=== PATIENT | male | born 1950 | race Caucasian/White ===

== ENCOUNTER 2019-06-09 15:25 | Outpatient (CLI) | payer MEDICARE, OTHER, SELFPAY ==
--- NOTE | 2019-06-09 15:39 | XR_ITS ---
WS: [id number] Lumbar spine, 3 views, 06/09/2019 Clinical Data: CHRONIC LOW BACK PAIN Comparison: None. Findings: No compression fractures or subluxation is seen. Degenerative disc narrowing at L5-S1 is seen.. The t ransverse processes and SI joints are normal. Minimal osteoarthritic spurring is seen of all the lumb ar vertebral bodies. There is a levoscoliosis. XR/XR lumbar spine 2-3V* [id number] Impression: Mild osteoarthritis and degenerative disc disease at L5-S1.
== END 2019-06-09 15:26 | disposition home or self-care (01) ==
LOC: RAD 15:34
PROVIDERS: Family Provider Family Medicine; PCP Family Medicine; Visit Provider Family Medicine
DX: M19.90 Unspecified osteoarthritis, unspecified site (principal); M51.37 Other intervertebral disc degeneration, lumbosacral region; G89.29 Other chronic pain; Z13.6 Encounter for screening for cardiovascular disorders; R35.1 Nocturia; R53.82 Chronic fatigue, unspecified; G47.33 Obstructive sleep apnea (adult) (pediatric); M54.42 Lumbago with sciatica, left side
CPT/HCPCS: 72100; 80053; 80061; 84153; 84439; 84443; 85025

== ENCOUNTER 2019-06-16 13:41 | Outpatient (CLI) | payer MEDICARE, OTHER, SELFPAY ==
--- NOTE | 2019-06-16 13:49 | MR_ITS ---
WS: [id number] MRI of the lumbar spine, 06/16/2019 Clinical Data: CHRONIC LOW BACK PAIN Comparison: None. Findings: No compression fractures are seen. The lower spinal cord ends posterior to the L1 vertebral body. The re is disc space narrowing at L5-S1 with degenerative disc disease noted at all levels. The bone ashwini ow the vertebral bodies demonstrates a normal signal. L1-L2: No canal stenosis, disc bulge or foraminal narrowing is seen. L2-L3: No canal stenosis, disc bulge or foraminal narrowing is seen. L3-L4: There is a minimal central disc bulge along with facet joint hypertrophy causing mild canal st enosis and mild foraminal stenosis. L4-L5: There is a mild central disc bulge with facet joint hypertrophy causing minimal canal and fora evans stenosis. L5-S1: No canal stenosis, disc bulge or foraminal narrowing is seen. MR/MR lumbar spine wo con* [id number] Impression: 1. Canal and foraminal stenosis which is minimal at L3-L4 and L4-L5. 2. Degenerative disc disease with narrowing at L5-S1. 3. Degenerative disc disease noted at all levels.
== END 2019-06-16 13:42 | disposition home or self-care (01) ==
LOC: RADWPI 13:48
PROVIDERS: Family Provider Family Medicine; PCP Family Medicine; Visit Provider Family Medicine
DX: M48.061 Spinal stenosis, lumbar region without neurogenic claudication (principal); M51.37 Other intervertebral disc degeneration, lumbosacral region; G89.29 Other chronic pain
CPT/HCPCS: 72148

== ENCOUNTER 2019-07-31 19:28 | Emergency (ER) | payer MEDICARE, OTHER, SELFPAY ==
[2019-07-31 19:35] VITALS: BP 131/71; PULSE 76; RESP 16; TEMP 37.1; O2SAT 98; BMI 23.2
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
--- NOTE | 2019-07-31 19:39 | XRR_ITS ---
PROCEDURE INFORMATION: Exam: XR Right Hand Exam date and time: 07/31/2019 7:41 PM Age: 69 years old Clinical indication: Injury or trauma; Initial encounter; Blunt trauma (contusions or hematomas; Hand; Right; Injury date: 07/31/2019 TECHNIQUE: Imaging protocol: XR Right hand. Views: 3 or more views. COMPARISON: No relevant prior studies available. FINDINGS: Bones/joints: The bones are intact and in normal alignment. No foreign body visualized. Soft tissues: Soft tissue laceration in the volar index finger. XR/XR hand RT min 3V* [id number] IMPRESSION: No acute skeletal abnormality.
[2019-07-31 19:40] VITALS: BP 124/76; PULSE 72; RESP 16; O2SAT 98
[2019-07-31] MEDS: tetanus-dipt-pertussis 0.5 mL SDV IM (19:56)
--- NOTE | 2019-07-31 20:52 | ED_ITS ---
Entered by Emelina Hassan, acting as scribe for Magda Tejeda MD Jul 31, 2019 19:28 HPI - Extremity Problem General: Chief complaint: Extremity Injury, Upper Stated complaint: right hand lac Time Seen by Provider: 07/31/19 19:36 PFS ED PFSH: Medical History Chronic low back pain GHAZAL (obstructive sleep apnea) Surgical History H/O thyroidectomy History of appendectomy Family History Father Cancer Social History Smoking and tobacco status: never smoked Alcohol intake: current Alcohol intake frequency: holidays/special occasions only Alcohol type: wine Course Vital Signs: Vital signs: Vital Signs Temperature 98.8 F 07/31/19 19:35 Pulse Rate 76 07/31/19 19:35 Respiratory Rate 16 07/31/19 19:35 Blood Pressure 131/71 07/31/19 19:35 Pulse Oximetry 98 07/31/19 19:35 MDM - Extremity (Nontraumatic) Imaging Data^: Other Xray: Radiologist's impression: [place] [address] XRay Report Signed Patient: Kosta Johnson #: [id number] : 3Acct#:[id number] Age/Sex: 69 / MADM Date: 07/31/19 Loc: ERRoom/Bed: Attending Dr: Ordering Provider/Ordering MD: Magda Tejeda MD Date of Service: 07/31/19 Procedure(s): XR hand RT min 3V* [id number] Accession Number(s): [id number] Report Number: [id number] PROCEDURE INFORMATION: Exam: XR Right Hand Exam date and time: 07/31/2019 7:41 PM Age: 69 years old Clinical indication: Injury or trauma; Initial encounter; Blunt trauma (contusions or hematomas; Hand; Right; Injury date: 07/31/2019 TECHNIQUE: Imaging protocol: XR Right hand. Views: 3 or more views. COMPARISON: No relevant prior studies available. FINDINGS: Bones/joints: The bones are intact and in normal alignment. No foreign body visualized. Soft tissues: Soft tissue laceration in the volar index finger. XR/XR hand RT min 3V* [id number] IMPRESSION: No acute skeletal abnormality. Dictated By:Jorge Tavares Signed By:Jorge TavaresSiviviane Date/Time:07/31/192009 Discharge Plan Discharge Patient Disposition: Home, Self-Care Clinical Impression: Finger laceration Qualifiers: Encounter type: initial encounter Finger: index finger Damage to nail status: without damage Foreign body presence: without foreign body Laterality: right Qualified Code(s): S61.210A - Laceration without foreign body of right index finger without damage to nail, initial encounter Condition: Stable Prescriptions: [place] 5-325 mg tablet 1 tab PO Q6H PRN (Reason: pain) Qty: 8 RF: 0 EC-Naprosyn 500 mg tablet,delayed release (DR/EC) 500 mg PO BID PRN (Reason: pain) Qty: 20 RF: 0 Discharge Orders: Discharge Order (Routine); Ordered 07/31/19 Ordered By: Magda Tejeda Referrals: Rubens Tesfaye DO [Family Provider] - Janneth Dixon DO [Primary Care Provider] - Discharge Diet: Advance as tolerated Discharge Activity: Resume usual activity Patient Instructions: Finger Laceration (ED) Activity Restrictions/Additional Instructions: return in 7 days for suture removal Coding Level of Care Code ED Project Director for Angel Kumar
[2019-07-31 20:57] VITALS: BP 124/76; PULSE 16; RESP 76; O2SAT 98
== END 2019-07-31 20:59 | disposition home or self-care (01) ==
PROVIDERS: Emergency Provider Emergency Medicine; Family Provider Family Medicine; PCP Family Medicine
DX: S61.210A Laceration without foreign body of right index finger without damage to nail, initial encounter (principal); X58.XXXA Exposure to other specified factors, initial encounter
CPT/HCPCS: 12001; 12345; 73130; 90471; 90715; 99281; 99283

== ENCOUNTER → 2021-06-09 15:20 | Outpatient (BNVA) | payer MEDICARE, OTHER, SELFPAY | PROVIDERS: Family Provider Family Medicine; PCP Family Medicine; Visit Provider Nurse Practitioner Family | DX: Z20.822 Contact with and (suspected) exposure to COVID-19 (principal) | CPT/HCPCS: 87635 ==

== ENCOUNTER → 2022-06-01 08:35 | Outpatient (BNVA) | payer MEDICARE, SELFPAY | PROVIDERS: Family Provider Family Medicine; PCP Family Medicine; Visit Provider Specialist | DX: S05.00XA Injury of conjunctiva and corneal abrasion without foreign body, unspecified eye, initial encounter (principal); X58.XXXA Exposure to other specified factors, initial encounter | CPT/HCPCS: 99202 ==

== ENCOUNTER → 2022-09-21 15:06 | Outpatient (BNVA) | payer MEDICARE, SELFPAY | PROVIDERS: Family Provider Family Medicine; PCP Family Medicine; Visit Provider Family Medicine | DX: R53.82 Chronic fatigue, unspecified (principal); Z12.5 Encounter for screening for malignant neoplasm of prostate; G47.33 Obstructive sleep apnea (adult) (pediatric); Z76.89 Persons encountering health services in other specified circumstances; Z13.6 Encounter for screening for cardiovascular disorders | CPT/HCPCS: 80053; 80061; 84439; 84443; 85025; G0103 ==

== ENCOUNTER → 2022-10-21 14:38 | Outpatient (BNVA) | payer MEDICARE, SELFPAY | PROVIDERS: Family Provider Family Medicine; PCP Family Medicine; Visit Provider Surgery | DX: Z12.11 Encounter for screening for malignant neoplasm of colon (principal); Z86.010 Personal history of colon polyps | CPT/HCPCS: 99024; 99203 ==

== ENCOUNTER 2022-11-19 07:09 | Day surgery (SDC) | payer MEDICARE, SELFPAY ==
[2022-11-17 09:58] VITALS: BMI 23.2
[2022-11-19 07:26] VITALS: BP 108/69; PULSE 85; RESP 20; TEMP 36.4; O2SAT 97
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
[2022-11-19] MEDS: sodium chloride 0.9% 1,000 ML 30 ML IV (07:42)
--- NOTE | 2022-11-19 08:09 | W.PM.OPSUD ---
Surgery/Procedure H&P Update DATE OF PROCEDURE: November 19, 2022 DATE H&P PERFORMED: 10/21/22 H&P UPDATE INFORMATION: I have reviewed H&P completed within last 30 days, I have examined patient prior to procedure and No changes to prior documentation PREOP DIAGNOSIS: screening PLANNED PROCEDURE: Operation Date: 11/19/22 08:00 Proposed Procedures p Colonoscopy 53592(Not Applicable) - Luis Manuel Apple, DO
[2022-11-19 08:48] VITALS: BP 89/57; PULSE 63; RESP 16; TEMP 36.1; O2SAT 97
--- NOTE | 2022-11-19 09:00 | ANE.PACU2 ---
Inpatient post-anesthesia follow up: Airway intact: Yes Vital signs: Temperature 97.0 F Pulse Rate 60 Respiratory Rate 16 Blood Pressure 98/63 Pulse Oximetry 99 Oxygen Delivery Me thod Room Air Oxygen Flow Rate Fraction of Inspir ed Oxygen Hydration adequate: Yes Nausea and vomiting: Yes Pain level: 1 Mental status: Baseline
[2022-11-19 09:05] VITALS: BP 98/63; PULSE 60; RESP 16; O2SAT 99
== END 2022-11-19 09:25 | disposition home or self-care (01) ==
PROVIDERS: PCP Family Medicine; Visit Provider Surgery
PROC: 0DJD8ZZ Inspection of Lower Intestinal Tract, Via Natural or Artificial Opening Endoscopic (ICD-10-PCS; CPT 45378; principal; 2022-11-19 08:00)
DX: Z12.11 Encounter for screening for malignant neoplasm of colon (principal); D12.3 Benign neoplasm of transverse colon
CPT/HCPCS: 45385; 88305; J2704; J7030

== ENCOUNTER → 2022-12-02 15:48 | Outpatient (BNVA) | payer MEDICARE, SELFPAY | PROVIDERS: PCP Family Medicine; Visit Provider Surgery | DX: Z09 Encounter for follow-up examination after completed treatment for conditions other than malignant neoplasm (principal) | CPT/HCPCS: 99212 ==

== ENCOUNTER 2023-08-22 13:33 | Emergency (ER) | payer MEDICARE, SELFPAY ==
--- NOTE | 2023-08-22 13:47 | XRR_ITS ---
PROCEDURE INFORMATION: Exam: XR Chest Exam date and time: 08/22/2023 2:43 PM Age: 73 years old Clinical indication: Cough and dyspnea; Patient HX: Dyspnea; Cough; Fever; Weakness; No previous cardiac HX; Additional info: Dyspnea/cough TECHNIQUE: Imaging protocol: Radiologic exam of the chest. Views: 1 view. COMPARISON: No relevant prior studies available. FINDINGS: Lungs: There is no consolidation. Pleural spaces: There is no pleural effusion or pneumothorax. Heart/Mediastinum: Cardiomediastinal contours are unremarkable. Bones/joints: Bones are unremarkable. XR/XR chest 1V portable [id number] IMPRESSION: No acute findings.
[2023-08-22 14:04] VITALS: BP 134/77; PULSE 104; RESP 17; TEMP 37.5; O2SAT 99; BMI 23.2
[2023-08-22 14:29] LABS: Basophils # 0.1 10^3/uL (0.0-0.1); Basophils % 0.6 %; Eosinophils % 0.5 %; Hematocrit 48.3 % (37-53); Lymphocytes # 0.8 10^3/uL (0.8-4.8); Lymphocytes % 9.5 %; Mean Corpuscular HGB Conc 32.3 g/dL (30-55); Mean Corpuscular Hemoglobin 30.9 pg (27-33); Mean Corpuscular Volume 95.6 fl (82-101); Mean Platelet Volume 11.6 fL (7.4-10.4); Monocytes # 1.2 10^3/uL (0.2-0.9); Monocytes % 13.7 %; Neutrophils # 6.34 10^3/uL (1.8-7.7); Neutrophils % 75.3 %; Nucleated Red Blood Cells % 0 %; Platelet Count 139 10^3/cmm (157-399); Red Blood Count 5.05 10^6/uL (3.85-5.65); Red Cell Distribution Width 12.8 % (12.1-15.1); White Blood Count 8.41 10^3/uL (3.29-11.43)
[2023-08-22 14:46] LABS: Lactic Sepsis W/Reflex 1.3 mmol/L (0.5-2.2)
[2023-08-22 14:47] LABS: Alanine Aminotransferase 14 U/L (0-41); Albumin Level 3.7 g/dL (3.5-5.2); Alkaline Phosphatase 73 U/L (40-130); Anion Gap 13.8 (5-19); Aspartate Amino Transferase 19 U/L (0-40); Blood Urea Nitrogen 25 mg/dL (8-23); Calcium 8.8 mg/dL (8.5-10.5); Carbon Dioxide 25 mmol/L (22-29); Chloride 99 mmol/L (98-107); Creatine Phosphokinase 100 U/L (39-308); Globulin 3.3 g/dL (1.3-4.6); Glucose 133 mg/dL (65-115); Magnesium 2.1 mg/dL (1.7-2.3); Osmolality Calculated 284 mOsm/kg (285-295); Potassium 3.8 mmol/L (3.5-5.1); Sodium 134 mmol/L (136-145); Total Bilirubin 0.5 mg/dL (0.15-1.2)
[2023-08-22 14:54] LABS: Creatinine Clr Calc Pharmacy 53.9562
--- NOTE | 2023-08-22 14:56 | W.ED.FEVER ---
HPI - Fever General: Chief Complaint: Fever Stated Complaint: fever, weakness Time Seen by Provider: 08/22/23 13:47 Source: patient Mode of arrival: ambulatory History of Present Illness: 73-year-old male presents to the emergency room from home with complaint of fever abdominal discomfort nausea single episode of pretty severe diarrhea this afternoon he had a tick bite to his left inguinal region couple days ago initially did not bother him now become red and inflamed with some central almost necrotic like appearance of localized lymph node swelling. He had a fever just generally felt very weak no systemic rash. No chest pain or shortness of breath MD elicited complaint: fever Associated symptoms: Reports chills, diarrhea, headache(s), myalgias and stiffness; Deny no associated symptoms, abdominal pain, flank pain, chest pain, confusion, cough, dysuria, extremity pain, nasal congestion, nausea, night sweats, rash, rhinorrhea, short of breath, sinus pain, sore throat, vomiting, weight loss or other Treatments prior to arrival fever: none Review of Systems Const: Reports: chills; Denies: fever(s) or night sweats ENMT: Denies: nasal congestion or sinus pain Card: Denies: chest pain Resp: Denies: dyspnea GI: Reports: diarrhea; Denies: abdominal pain, nausea or vomiting : Denies: flank pain, dysuria, urinary frequency or urinary urgency Musc: Denies: neck pain, back pain or extremity pain Skin/Breast: Denies: rash Neuro: Reports: headache(s); Denies: confusion PFSH ED PFSH: Medical History (Updated 08/22/23 @ 17:01 by Rubens Tesfaye DO) Chronic low back pain GHAZAL (obstructive sleep apnea) Surgical History History of appendectomy H/O thyroidectomy Family History Father Cancer Social History Smoking and tobacco/nicotine status: never used tobacco/nicotine Second hand smoke exposure: No Alcohol intake: current Alcohol intake frequency: holidays/special occasions only Alcohol type: wine Substance/Drug Use: never Caregiver/support person: No Lives independently: Yes Do you think of yourself as: Straight/Heterosexual Current gender identity: Male Physical Exam Const: GENERAL APPEARANCE: cooperative and comfortable ORIENTATION/CONSCIOUSNESS: Yes awake, Yes oriented to person, Yes oriented to place and Yes oriented to time HENMT: COMMON NORMALS: normocephalic, atraumatic and hearing grossly normal bilaterally HEAD & SCALP: normocephalic and atraumatic Resp: COMMON NORMALS: normal respiratory effort, No retractions, No use of accessory muscles and clear to auscultation bilaterally AUSCULTATION: clear to auscultation bilaterally Cardio: COMMON NORMALS: regular rate, regular rhythm and No murmurs present (Cardio) RATE: regular rate RHYTHM: regular rhythm GI: COMMON NORMALS: Soft to palpation and No hepatosplenomegaly present AUSCULTATION: Yes normoactive bowel sounds PALPATION: Yes Soft to palpation, No Tenderness to palpation present (GI), No Guarding due to palpation present (GI) and Yes No hepatosplenomegaly present Extremity: COMMON NORMALS: normal to inspection, capillary refill normal, no clubbing, cyanosis or edema, no calf tenderness and no pedal edema Neuro: SENSORIUM/ORIENTATION: Yes oriented to person, Yes oriented to place and Yes oriented to time Skin: OTHER: No systemic rash. Localized rash with erythema central necrosis of a tick bite in the left inguinal region Course Vital Signs: Vital signs: Vital Signs Temperature 99.5 F 08/22/23 14:04 Pulse Rate 104 H 08/22/23 14:04 Respiratory Rate 17 08/22/23 14:04 Blood Pressure 134/77 08/22/23 14:04 Pulse Oximetry 99 08/22/23 14:04 Oxygen Delivery Me thod Room Air 08/22/23 14:04 MDM - Fever Medical Decision Making No leukocytosis liver functions normal patient does have a rash from the tick bite suspect he likely has a tickborne illness we will start him on doxycycline.. Tick panel is pending. Follow-up with primary care doctor symptoms worsen return. Medical Records I reviewed the patient's medical records. Lab Data I reviewed the patient's lab results. 08/22/23 14:17 08/22/23 14:17 Radiology Impressions Chest X-Ray 08/22/23 13:47 IMPRESSION: No acute findings. Laboratory Results WBC 8.41 10^3/uL (3.29-11.43) 08/22/23 14:17 RBC 5.05 10^6/uL (3.85-5.65) 08/22/23 14:17 Hgb 15.60 g/dL (11.27-16.99) 08/22/23 14:17 Hct 48.3 % (37-53) 08/22/23 14:17 MCV 95.6 fl (82-101) 08/22/23 14:17 MCH 30.9 pg (27-33) 08/22/23 14:17 MCHC 32.3 g/dL (30-55) 08/22/23 14:17 RDW 12.8 % (12.1-15.1) 08/22/23 14:17 Plt Count 139 10^3/cmm (157-399) L 08/22/23 14:17 MPV 11.6 fL (7.4-10.4) H 08/22/23 14:17 Neut % (Auto) 75.3 % 08/22/23 14:17 Lymph % (Auto) 9.5 % 08/22/23 14:17 [place] % (Auto) 13.7 % 08/22/23 14:17 Eos % (Auto) 0.5 % 08/22/23 14:17 Baso % (Auto) 0.6 % 08/22/23 14:17 Neut # (Auto) 6.34 10^3/uL (1.8-7.7) 08/22/23 14:17 Lymph # (Auto) 0.8 10^3/uL (0.8-4.8) 08/22/23 14:17 [place] # (Auto) 1.2 10^3/uL (0.2-0.9) H 08/22/23 14:17 Eos # (Auto) 0.0 10^3/uL (0.0-0.8) 08/22/23 14:17 Baso # (Auto) 0.1 10^3/uL (0.0-0.1) 08/22/23 14:17 Nucleated RBC % (auto) 0 % 08/22/23 14:17 Nucleated RBCs # 0.0 /100WBC 08/22/23 14:17 Sodium 134 mmol/L (136-145) L 08/22/23 14:17 Potassium 3.8 mmol/L (3.5-5.1) 08/22/23 14:17 Chloride 99 mmol/L (98-107) 08/22/23 14:17 Carbon Dioxide 25 mmol/L (22-29) 08/22/23 14:17 Anion Gap 13.8 (5-19) 08/22/23 14:17 BUN 25 mg/dL (8-23) H 08/22/23 14:17 Creatinine 1.3 mg/dL (0.7-1.2) H 08/22/23 14:17 GFR Calculation Not Reportable 08/22/23 14:17 Glucose 133 mg/dL (65-115) H 08/22/23 14:17 Calculated Osmolality 284 mOsm/kg (285-295) L 08/22/23 14:17 Lactic Acid 1.3 mmol/L (0.5-2.2) 08/22/23 14:17 Calcium 8.8 mg/dL (8.5-10.5) 08/22/23 14:17 Magnesium 2.1 mg/dL (1.7-2.3) 08/22/23 14:17 Total Bilirubin 0.5 mg/dL (0.15-1.2) 08/22/23 14:17 AST 19 U/L (0-40) 08/22/23 14:17 ALT 14 U/L (0-41) 08/22/23 14:17 Alkaline Phosphatase 73 U/L (40-130) 08/22/23 14:17 Creatine Kinase 100 U/L (39-308) 08/22/23 14:17 Total Protein 7.0 g/dL (6.6-8.7) 08/22/23 14:17 Albumin 3.7 g/dL (3.5-5.2) 08/22/23 14:17 Globulin 3.3 g/dL (1.3-4.6) 08/22/23 14:17 Urine Color Yellow (Yellow) 08/22/23 16:14 Urine Appearance Clear (CLEAR) 08/22/23 16:14 Urine pH 5 (5-7) 08/22/23 16:14 Ur Specific [place] 1.020 (1.005-1.030) 08/22/23 16:14 Urine Protein Neg (Negative) 08/22/23 16:14 Urine Glucose (UA) Norm (Normal) 08/22/23 16:14 Urine Ketones 1+ (Negative) H 08/22/23 16:14 Urine Blood 2+ (Negative) H 08/22/23 16:14 Urine Nitrate Negative (Negative) 08/22/23 16:14 Urine Bilirubin Neg (Negative) 08/22/23 16:14 Urine Urobilinogen Norm mg/dL (Negative) 08/22/23 16:14 Ur Leukocyte Esterase Negative (Negative) 08/22/23 16:14 Urine RBC 0-4 /hpf (0-2) H 08/22/23 16:14 Urine WBC Rare /hpf (0-5) 08/22/23 16:14 Ur Squamous Epith Cells Rare /hpf (0-5) 08/22/23 16:14 Amorphous Sediment Not Reportable 08/22/23 16:14 Urine Bacteria Trace /hpf (NONE) 08/22/23 16:14 Urine Mucus 1+ /hpf 08/22/23 16:14 Coronavirus 229E (PCR) Not detected (NOT DETECT) 08/22/23 15:08 Influenza Type A Ag negative (Negative) 08/22/23 15:08 Influenza Type B Ag negative (Negative) 08/22/23 15:08 SARS-CoV-2 (PCR) Not detected (NOT DETECT) 08/22/23 15:08 All radiology interpretation(s) finalized by discharge Discharge Plan Discharge Patient Disposition: Home Clinical Impression: Tick-borne disease Condition: Stable Prescriptions: New doxycycline hyclate 100 mg capsule 100 mg PO BID 21 Days Qty: 42 0RF No Action multivitamin Tablet 1 tab PO DAILY zinc acetate 50 mg (zinc) Capsule 50 mg PO DAILY PRN (Reason: unknown) Calcium 500 500 mg calcium (1,250 mg) Tablet 500 mg PO DAILY PRN (Reason: unknown) potassium gluconate 595 mg (99 mg) Tablet 595 mg PO DAILY PRN (Reason: unknown) vitamin D3-vitamin K2 1,250-200 mcg Capsule 1 cap PO DAILY PRN (Reason: unknown) Discharge Orders: Discharge ED (Routine); Ordered 08/22/23 Ordered By: Rubens Tesfaye Referrals: Rg Gautam, DO [Primary Care Provider] - Discharge Diet: Usual diet Patient Instructions: Opioid Safety, Pain Management Activity Restrictions/Additional Instructions: Thank you for choosing [facility] for your healthcare needs today. Please realize this is an emergency room and that we are providing you with a medical screening exam and this may not be complete and all inclusive of all the testing and or work up that you may need to determine your ailment or severity of your illness. It is very important that you follow up as instructed or that you return to the Emergency Department should you have concerns or if your condition changes or worsens in any way. You are seen today with complaints of not feeling well the last several days after began after tick bite with a rash at the site of the tick bite. Liver enzymes white count were normal suspect of a tickborne illness recommend he Coding Level of Care Code ED Instrumentation Supervisor for Angel Kumar
[2023-08-22 15:05] VITALS: BP 112/68; PULSE 79; O2SAT 97
[2023-08-22] MEDS: sodium chloride 0.9% 1,000 ML 999 ML IV (15:05)
--- NOTE | 2023-08-22 15:11 | PC.PHAR ---
pt states he takes no prescription medications-pt states no longer takes levothyroxine 25mcg daily last filled 05/04/23 30d/s pt states not taken for a month or so-pt states takes his multivitamin daily and takes the zinc,kcl otc,calcium and vit d and vit k prn when he thinks about it
[2023-08-22 15:33] LABS: Influenza A by IFA negative (Negative); Influenza B by IFA negative (Negative)
[2023-08-22 15:35] VITALS: BP 122/68; PULSE 75; O2SAT 99
[2023-08-22 16:30] VITALS: BP 125/76; PULSE 78; O2SAT 98
[2023-08-22 16:55] LABS: Urine Appearance Clear (CLEAR); Urine Color Yellow (Yellow); pH Urine 5 (5-7)
[2023-08-22 16:57] LABS: Add Urine Microscopic? YES; Bacteria Urine TRACE /hpf; Bilirubin Urine Neg (Negative); Blood Urine 2+ (Negative); Glucose Urine UA Norm (Normal); Ketones Urine 1+ (Negative); Leukocyte Esterase Urine Negative (Negative); Mucus Urine 1+ /hpf; Nitrate Urine Negative (Negative); Protein Urine Neg (Negative); RBC Urine 0-4 /hpf (0-2); Squamous Epithelial Cell Urine RARE /hpf (0-5); Urobilinogen Urine Norm (Negative); WBC Urine RARE /hpf (0-5)
[2023-08-22 16:58] LABS: Add Urine Culture? No
[2023-08-22 17:02] LABS: Adenovirus Not Detected (NOT DETECT); Chlamydia Pneumoniae Not Detected (NOT DETECT); Coronavirus 229E,HKU1,NL63,OC4 Not Detected (NOT DETECT); Human Metapneumovirus Not Detected (NOT DETECT); Human Rhinovirus/Enterovirus Not Detected (NOT DETECT); Influenza A Not Detected (NOT DETECT); Influenza A H1 Not Detected (NOT DETECT); Influenza A H1-2009 Not Detected (NOT DETECT); Influenza A H3 Not Detected (NOT DETECT); Influenza B Not Detected (NOT DETECT); Mycoplasma Pneumoniae Not Detected (NOT DETECT); Parainfluenza Virus Type 1 Not Detected (NOT DETECT); Parainfluenza Virus Type 2 Not Detected (NOT DETECT); Parainfluenza Virus Type 3 Not Detected (NOT DETECT); Parainfluenza Virus Type 4 Not Detected (NOT DETECT); Respiratory Syncytial Virus A Not Detected (NOT DETECT); Respiratory Syncytial Virus B Not Detected (NOT DETECT); SARS-COV-2 Not Detected (NOT DETECT)
[2023-08-22 17:38] VITALS: BP 125/73; PULSE 81; O2SAT 98
[2023-08-23 15:48] LABS: Lyme AB Screen <0.90 index
[2023-08-27 17:30] LABS: E. Chaffeensis AB IGG <1:64; E. Chaffeensis AB IGM <1:20
[2023-08-27 19:11] LABS: RMSF IGG NOT DETECTED; RMSF IGM NOT DETECTED
== END 2023-08-22 17:46 | disposition home or self-care (01) ==
PROVIDERS: Emergency Provider Family Medicine; PCP Family Medicine
DX: A93.8 Other specified arthropod-borne viral fevers (principal); Z11.52 Encounter for screening for COVID-19
CPT/HCPCS: 71045; 80053; 81001; 82550; 83605; 83735; 85025; 86618; 86666; 86757; 87040; 87635; 87804; 96360; 99284; J7030

== ENCOUNTER → 2023-12-07 13:24 | Outpatient (BNVA) | payer MEDICARE, SELFPAY | PROVIDERS: PCP Family Medicine; Visit Provider Family Medicine | DX: L44.9 Papulosquamous disorder, unspecified (principal) | CPT/HCPCS: 88305 ==

== ENCOUNTER 2023-12-21 17:48 | Emergency (ER) | payer MEDICARE, SELFPAY ==
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
[2023-12-21 17:57] VITALS: BP 120/75; PULSE 69; RESP 18; TEMP 36.4; O2SAT 100
[2023-12-21] MEDS: iohexol 350 mg/mL 500 mL Btl (per mL) IV (18:23)
[2023-12-21 18:30] VITALS: BP 141/78; PULSE 74; O2SAT 97
[2023-12-21 19:37] LABS: Alanine Aminotransferase 17 U/L (0-41); Alkaline Phosphatase 88 U/L (40-130); Anion Gap 14.1 (5-19); Aspartate Amino Transferase 19 U/L (0-40); Blood Urea Nitrogen 18 mg/dL (8-23); Calcium 8.7 mg/dL (8.5-10.5); Carbon Dioxide 26 mmol/L (22-29); Chloride 100 mmol/L (98-107); Globulin 2.4 g/dL (1.3-4.6); Glucose 106 mg/dL (65-115); Osmolality Calculated 284 mOsm/kg (285-295); Potassium 4.1 mmol/L (3.5-5.1); Sodium 136 mmol/L (136-145); Total Bilirubin 0.5 mg/dL (0.15-1.2); Total Protein 6.4 g/dL (6.6-8.7)
[2023-12-21 19:38] VITALS: BP 110/67; PULSE 77; O2SAT 99
== END 2023-12-21 19:39 | disposition home or self-care (01) ==
PROVIDERS: Emergency Provider Emergency Medicine; PCP Family Medicine
DX: S51.012A Laceration without foreign body of left elbow, initial encounter (principal); V89.2XXA Person injured in unspecified motor-vehicle accident, traffic, initial encounter
CPT/HCPCS: 36415; 70450; 71260; 72125; 73080; 74177; 80053; 99284; Q9967

== ENCOUNTER 2023-12-28 09:47 | Outpatient (CLI) | payer MEDICARE, SELFPAY ==
--- NOTE | 2023-12-28 10:00 | US_ITS ---
WS: [id number] Complete ABDOMINAL ULTRASOUND HISTORY: N28.89 - Other specified disorders of kidney and ureter COMPARISON: CT 12/21/2023 Liver: 16.2 cm in length. Liver is normal size. Simple cyst RIGHT lobe just anterior to the kidney me asures 6.5 x 5.7 x 6.8 cm. No intrahepatic duct dilatation. Portal Vein: Normal hepatopetal flow with monophasic waveform. Gallbladder: Well-distended gallbladder. There are at least 2 stones identified near the gallbladder neck. No adjacent inflammation. CBD: 0.4 cm Pancreas: Obscured by bowel gas. Right kidney: 10.9 cm x 4.6 x 4.7 cm. Cortex:1.1 cm. Normal size. No obstruction. Prominent renal pelvis due to parapelvic cyst. Left kidney: 11.3 cm x 6.2 cm x 6.1 cm. Cortex: 1.5 cm. Normal size with no obstruction. Complex cyst with adjacent cortical thinning in the superior pole me asures 1.6 x 1.9 x 1.6 cm. There is mild wall calcification. There is a prominent parapelvic cyst kriss trally. Spleen: 9.6 cm. Normal size and echogenicity. Aorta and IVC: Unremarkable abdominal aorta and IVC. US/US abdomen complete* [id number] Impression: 1. Cholelithiasis without evidence for acute cholecystitis. 2. Mildly complex cyst superior pole LEFT kidney measures 1.6 x 1.9 x 1.6 cm. Partial wall calcifications with adjacent cortical thinning. Consider 6-month r enal ultrasound follow-up. 3. Hepatic cyst, 6.5 x 5.7 x 6.8 cm.
== END 2023-12-28 09:48 | disposition home or self-care (01) ==
LOC: RAD 09:47
PROVIDERS: PCP Family Medicine; Visit Provider Family Medicine
DX: N28.89 Other specified disorders of kidney and ureter (principal); K76.89 Other specified diseases of liver; K80.20 Calculus of gallbladder without cholecystitis without obstruction; N28.1 Cyst of kidney, acquired
CPT/HCPCS: 76700; 81003

== ENCOUNTER → 2024-09-13 11:30 | Outpatient (BNVA) | payer MEDICARE, SELFPAY | PROVIDERS: PCP Family Medicine; Visit Provider Family Medicine | DX: N39.0 Urinary tract infection, site not specified (principal); J98.9 Respiratory disorder, unspecified; R50.9 Fever, unspecified; N28.89 Other specified disorders of kidney and ureter; Z12.5 Encounter for screening for malignant neoplasm of prostate | CPT/HCPCS: 80053; 81000; 85025; 86140; 86618; 86666; 86757; 87086; G0103 ==

== ENCOUNTER → 2024-12-13 15:28 | Outpatient (BNVA) | payer MEDICARE, SELFPAY | PROVIDERS: PCP Family Medicine; Visit Provider Podiatrist Foot & Ankle Surgery | DX: L60.3 Nail dystrophy (principal) | CPT/HCPCS: 99203 ==

== ENCOUNTER → 2024-12-25 09:21 | Outpatient (BNVA) | payer MEDICARE, SELFPAY | PROVIDERS: PCP Family Medicine; Referring Provider Family Medicine; Visit Provider Internal Medicine Cardiovascular Disease | DX: I47.9 Paroxysmal tachycardia, unspecified (principal); R00.2 Palpitations; R07.9 Chest pain, unspecified | CPT/HCPCS: 93005; 99204 ==

== ENCOUNTER 2025-01-30 08:54 | Outpatient (CLI) | payer MEDICARE, SELFPAY ==
[2025-01-30 09:10] VITALS: BMI 22.5
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
--- NOTE | 2025-01-30 09:14 | ECG_ITS ---
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 Interpretive Statements Procedure: The patient was exercised by the Amish protocol. Vital signs and ECG findings: The resting blood pressure was 108/65 with a heart rate of 68 bpm. At maximum stress the blood pressure was 142/76 with a heart rate of 145 which was 97% of maximal predicted heart rate. The patient exercised for total of 8 minutes and 2 seconds on the Amish protocol which is above average for the patient's age. Resting EKG showed sinus rhythm with no ST-T wave abnormalities. At peak stress the patient had 1.[address] depression in the inferolateral leads as well as the anterior leads consistent with inducible ischemia. The ST depression improved back to normal by 48 seconds into recovery. No premature ventricular contractions (PVCs) during stress. There were frequent PVCs in recovery. CONCLUSION: 1. Exercise capacity was above average for age. 2. Heart rate response was appropriate. 3. Blood pressure response was appropriate. 4. No symptoms of angina during exercise. 5. Electrocardiogram portion of the stress test with evidence of ischemia 6. Frequent PVCs in recovery 6. Nuclear scan will be documented separately. Electronically Signed On 01-30-2025 20:48:22 CDT by Herve Albarran M.D. [email or web address]
[2025-01-30 11:43] VITALS: BP 133/84; PULSE 88
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
== END 2025-01-30 08:55 | disposition home or self-care (01) ==
LOC: CDL 09:10
PROVIDERS: PCP Family Medicine; Visit Provider Internal Medicine Cardiovascular Disease
DX: R00.2 Palpitations (principal); R07.9 Chest pain, unspecified; R06.02 Shortness of breath; I08.1 Rheumatic disorders of both mitral and tricuspid valves; I37.1 Nonrheumatic pulmonary valve insufficiency; R94.39 Abnormal result of other cardiovascular function study; I49.8 Other specified cardiac arrhythmias; I49.3 Ventricular premature depolarization
CPT/HCPCS: 36415; 78452; 93017; 93306; A9500

== ENCOUNTER 2025-02-01 15:21 | Outpatient (CLI) | payer MEDICARE, SELFPAY ==
[2025-02-01 18:14] LABS: Hematocrit 45.5 % (37-53); Hemoglobin 14.80 g/dL (11.27-16.99); Mean Corpuscular HGB Conc 32.5 g/dL (30-55); Mean Corpuscular Hemoglobin 30.1 pg (27-33); Mean Corpuscular Volume 92.7 fl (82-101); Nucleated Red Blood Cells % 0 %; Platelet Count 186 10^3/cmm (157-399); Red Blood Count 4.91 10^6/uL (3.85-5.65); White Blood Count 4.75 10^3/uL (3.29-11.43)
[2025-02-01 18:44] LABS: INR 0.94 (0.83-1.21)
[2025-02-01 18:50] LABS: Anion Gap 13.1 (5-19); Blood Urea Nitrogen 17 mg/dL (8-23); Calcium 8.8 mg/dL (8.5-10.5); Carbon Dioxide 28 mmol/L (22-29); Chloride 103 mmol/L (98-107); Glucose 66 mg/dL (65-115); Osmolality Calculated 290 mOsm/kg (285-295); Potassium 4.1 mmol/L (3.5-5.1); Sodium 140 mmol/L (136-145)
== END 2025-02-01 15:22 | disposition home or self-care (01) ==
LOC: LAB 15:23
PROVIDERS: PCP Family Medicine; Visit Provider Internal Medicine Cardiovascular Disease
DX: L60.3 Nail dystrophy (principal); R53.82 Chronic fatigue, unspecified; R58 Hemorrhage, not elsewhere classified; I47.9 Paroxysmal tachycardia, unspecified; R00.2 Palpitations
CPT/HCPCS: 36415; 80048; 85025; 85610; 99214

== ENCOUNTER → 2025-02-05 10:28 | Outpatient (BNVA) | payer MEDICARE, SELFPAY | PROVIDERS: PCP Family Medicine; Visit Provider Internal Medicine Cardiovascular Disease | DX: R00.2 Palpitations (principal); I47.9 Paroxysmal tachycardia, unspecified; I49.3 Ventricular premature depolarization; R07.9 Chest pain, unspecified; R94.39 Abnormal result of other cardiovascular function study | CPT/HCPCS: 99214 ==

== ENCOUNTER → 2025-02-06 10:55 | Outpatient (BNVA) | payer MEDICARE, SELFPAY | PROVIDERS: PCP Family Medicine; Referring Provider Family Medicine; Visit Provider Nurse Practitioner Family | DX: L65.0 Telogen effluvium (principal); B07.8 Other viral warts; B02.9 Zoster without complications; L23.1 Allergic contact dermatitis due to adhesives; I78.8 Other diseases of capillaries; L82.1 Other seborrheic keratosis; L81.4 Other melanin hyperpigmentation; L57.8 Other skin changes due to chronic exposure to nonionizing radiation; Z08 Encounter for follow-up examination after completed treatment for malignant neoplasm; Z85.828 Personal history of other malignant neoplasm of skin; L57.0 Actinic keratosis | CPT/HCPCS: 11102; 17000; 99203 ==

== ENCOUNTER 2025-02-12 09:02 | Outpatient (CLI) | payer MEDICARE, SELFPAY ==
[2025-02-12] VITALS (14 sets, daily range): BP systolic 83–114; BP diastolic 52–71; PULSE 54–77; RESP 12–18; TEMP 36.8; O2SAT 95–99; BMI 23.1
--- NOTE | 2025-02-12 09:00 | XACV_ITS ---
Ht: 178 cm Wt: 73 kg BSA: 1.90 m2 Gender: Male : 1950 Any Known Allergies: No known allergies Exam Priority: Routine Procedure(s): Procedure Description: Diagnostic procedure Procedure Description: Left Heart Catheterization Procedure Description: Coronary Angiography Diagnostic Cath Status: Elective Diagnostic Findings * INDICATION: Chest pain/ abnormal stress test. * No significant disease noted in the Left Main, Left Anterior Descending, Right, or Circumflex coronary arteries. * Coronary angiography shows right dominance. Conclusions 1. No significant disease noted in the Left Main, Left Anterior Descending, Right, or Circumflex coronary arteries. Recommendations * Risk factor modification. * Outpatient cardiology follow up in 4 weeks. Interventional RX Recommendation: medical therapy and/or counseling Diagnostic RX Recommendation: medical therapy and/or counseling Anticoagulation: Heparin Pressures Phase:Rest AO : 99 / 52 ( 71 ) @ 11:20:00 AM 99 / 51 ( 71 ) @ 11:20:00 AM 100 / 52 ( 72 ) @ 11:20:00 AM LV : 112 / -9 / 11 @ 11:19:00 AM 106 / -8 / 10 @ 11:20:00 AM Valves Phase:DefaultPhase AV : 7.0 @ 10:33:10 AM AV Mean Gradient: 15.0 @ 10:33:10 AM Clinical Evaluation EBL: 5mL-10mL Procedural Details Procedure Consent Obtained. Admit Source: Out Patient. Pre-Procedure Time Out. Identified patient by full name and date of as verbalized by the patient/guarantor. Does the consent match the physician's order: Yes. Accurate & Complete Informed Consent: Yes. Inpatient/Outpatient History & Physical on Chart: Yes. If H&P is completed, is and addenduem needed: No; If yes, is the addendum complete: N/A. Visualize and Verify Site with Patient/Guarantor: N/A. Relevant Radiology Images available: N/A. The risks, benefits, and alternatives of sedation and/or procedure were discussed by physician. The patient agrees to continue. Procedure started. [facility] Clinical Fraility Score: 3: Managing Well. 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 Chest Pain Symptom Assessment: Atypical Angina. Cardiovascular Instability: No. Correct patient, site and procedure confirmed by cath team. Current diagnosis: Chest Pain; Abnormal stress test. PERRLA. Strong, equal hand program clinician bilaterally. Lungs clear x 5 lobes. IV Site on Arrival: 20 gauge in the right anticubital. IV Fluids: 0.9% NaCl at KVO. 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 Pre Procedural Pulses: bilateral dorsalis pedis was 3+. Pre Procedural Pulses: bilateral posterior tibial was 3+. Pre Procedural Pulses: bilateral radial was 3+. Oxygen started at 3liters/min via nasal canula. right groin was prepped with chloroprep then draped in the usual sterile fashion. right radial was prepped with chloroprep then draped in the usual sterile fashion. Physician notified. Baseline sample Acquired. HR: 60 BPM. Physician arrived. Physician scrubbed in. Immediate Pre-Procedure Time Out. Correct Patient: Yes; Correct Procedure: Yes; Correct Site: Yes; Correct Patient Position: Yes; Correct Supplies: Yes; Dried Flammable Prep: Yes; Blood Products Available: N/A;. Lidocaine 1% infiltrated to the right radial. Arterial access obtained. A 5 danish TIG catheter in over wire. Multiple views taken of left coronary artery. Catheter redirected to the RCA. Multiple views taken of right coronary artery. Catheter dropped into the LV. EDP Sample taken: LV 112/-10,11; HR: 73 BPM; SpO2: 93%. Pullback taken: LV 106/-9,10; AO 99/52(71); Mean: 15mmHg, Peak to Peak: 7mmHg, SEP: 6sec/min; HR: 69 BPM; SpO2: 94%. Catheter removed over the exchange wire. Contrast type used: Omnipaque 300 mg/mL, 150 mL bottle. [id number]. Physician review of films. Physician scrubbed out. Post-op diagnosis: Non Obstuctive CAD. A TR Band was successful obtaining hemostatsis at the Right Radial artery insertion site. TR band placed. Hemostasis obtained. Post Procedure: Pulses reassessed and unchanged. PERRLA. Strong, equal hand program clinician bilaterally. No VTE prophylaxis required. Medication's Wasted: Lidocaine 1% = 18 ml , Versed = 1 mg , Nitro = 49.8 mg , Heparin = 1000 units , Fentanyl = 75 mcg. Total IV fluids: 50 mL. Fluoro: 2:03. Complications: None. Estimated blood loss: 5mL-10mL. Responsiveness - Normal response to verbal stimuli; alert and oriented, PERRLA. Airway - Unaffected, no intervention required; spontaneous ventilation. Circulation: W/N/L, pulses unchanged. Nausea/Vomiting: No. Procedure completed. Patient transferred by wheelchair to CPRU. Vital chart was stopped. Access Site Site: Right Radial artery Sheath Size: 6 Fr Hemostasis Method: TR Band Hemostasis Success: Successful Procedure Medications Start: 10:06 AM Stop: 10:06 AM Medication: Versed Amount: 1 mg Route: I.V. Start: 10:06 AM Stop: 10:06 AM Medication: Fentanyl Amount: 25 mcg Route: I.V. Start: 10:12 AM Stop: 10:12 AM Medication: Nitrogylcerin Amount: 200 mcg Route: I.A. Start: 10:13 AM Stop: 10:13 AM Medication: Heparin Amount: 5000 units Route: I.V. I, the attending physician, have reviewed and verified all procedure medications. Yes, all medications given per verbal order History/Risk Factors Hypertension: No Dyslipidemia: No Peripheral Arterial Disease (PAD): No Myocardial Infarction (WI): No Obesity: No Renal Disease: No Tobacco Use: Never Prior Interventions PCI: No CABG: No Valve Surgery: No Report Signatures Finalized by Hilton Laguna MD on 02/12/2025 10:53 AM
--- NOTE | 2025-02-12 10:05 | W.PM.OPSUD ---
Surgery/Procedure H&P Update DATE OF PROCEDURE: February 12, 2025 DATE H&P PERFORMED: 02/05/25 H&P UPDATE INFORMATION: I have reviewed H&P completed within last 30 days, I have examined patient prior to procedure and No changes to prior documentation PREOP DIAGNOSIS: Chest pain/ abnormal stress test PRIMARY INDICATION FOR PROCEDURE: Chest pain/ abnormal stress test PLANNED PROCEDURE: Operation Date: 02/12/25 10:00 Proposed Procedures p Cardiac Catheterization - [facility] w/wo LV & coronaries(Left) - Hilton Laguna M.D Possible percutaneous coronary intervention PATIENT REASSESSED PRIOR TO SEDATION, WITH NO CHANGE NOTED: Yes PHYSICAL EXAM: alert, oriented x 3, clear to auscultation bilaterally and regular rate & rhythm AIRWAY EVAL/ANESTHESIA PLAN: normal airway, ASA III, Local Anesthesia, Risks, benefits & alternatives of sedation and/or procedure discussed and Patient agrees to continue as planned ADDITIONAL INFORMATION: Moderate sedation
--- NOTE | 2025-02-12 11:23 | PC.NURSE ---
received pt from systems testing laboratory technician post diagnostic heart cath. pt alert and oriented x4. pt complains of no pain. pt educated on restrictions of right wrist and acknowledged understanding. nurse to educated throughout recovery.
== END 2025-02-12 13:40 | disposition home or self-care (01) ==
PROVIDERS: PCP Family Medicine; Visit Provider Internal Medicine
DX: R07.9 Chest pain, unspecified (principal); R94.39 Abnormal result of other cardiovascular function study; G47.33 Obstructive sleep apnea (adult) (pediatric); R00.0 Tachycardia, unspecified; R00.2 Palpitations; I49.3 Ventricular premature depolarization
CPT/HCPCS: 36415; 93458; 96365; 99152; C1769; C1887; C1894; J1644; J2250; J3010; J3490; J7030; J9999; Q0163; Q9967

== ENCOUNTER → 2025-03-12 08:34 | Outpatient (BNVA) | payer MEDICARE, SELFPAY | PROVIDERS: PCP Family Medicine; Visit Provider Internal Medicine Cardiovascular Disease | DX: I47.9 Paroxysmal tachycardia, unspecified (principal); I49.3 Ventricular premature depolarization; R07.9 Chest pain, unspecified; I34.1 Nonrheumatic mitral (valve) prolapse | CPT/HCPCS: 99214 ==

== ENCOUNTER → 2025-03-15 14:06 | Outpatient (BNVA) | payer MEDICARE, SELFPAY | PROVIDERS: PCP Family Medicine; Visit Provider Podiatrist Foot & Ankle Surgery | DX: L60.3 Nail dystrophy (principal) | CPT/HCPCS: 99213 ==